=== PATIENT | female | born 1960 | race Caucasian/White ===

== ENCOUNTER → 2017-04-30 | Outpatient (REF) | payer OTHER ==
[~2017-04-30] MED LIST: ACET500C; EFFE150C; HYDROCODONE PO; IBUP400T OR; SIMV10TA2 OR
== END ==
LOC: M SFHCWAGY 10:43
PROVIDERS: ATTEND Nurse Practitioner Women's Health
DX: Z12.4 Encounter for screening for malignant neoplasm of cervix (principal)

== ENCOUNTER → 2017-04-30 | Outpatient (CLI) | payer OTHER ==
--- NOTE | 2017-04-30 12:47 | REPMRS ---
Patient History The patient states she had a clinical breast exam in 05/04 Patient is postmenopausal. Family history of prostate cancer in father at age 50 or over. Taking unspecified hormones for 5 years. Digital Woman Screen Mammo: April 30, 2017 - Exam #: [id number] Bilateral CC and MLO view(s) were taken. Technologist: Mihaela Lechuga, Technologist Prior study comparison: April 29, 2016, digital woman screen mammo performed at [facility]. April 28, 2015, digital woman screen mammo performed at [facility]. FINDINGS: The breast tissue is heterogeneously dense. This may lower the sensitivity of mammography. There has been no change in the appearance of the mammogram from the prior studies. There is a moderate amount of residual fibroglandular tissue which is fairly symmetric. There is no interval development of dominant mass, areas of architectural distortion, or clustered microcalcification typical of malignancy. ASSESSMENT: BI-RADS/ACR category 1 mammogram. Negative. Recommendation Routine screening mammogram in 1 year (for women over age 40). This mammogram was interpreted with the aid of an FDA-approved computer-aided dectection system. Electronically Signed By: Major Castillo MD 04/30/17 [id number]
== END ==
LOC: M WHC 10:33
PROVIDERS: ATTEND Nurse Practitioner Women's Health
DX: Z12.31 Encounter for screening mammogram for malignant neoplasm of breast (principal); Z78.0 Asymptomatic menopausal state

== ENCOUNTER → 2018-06-09 | Outpatient (CLI) | payer OTHER ==
--- NOTE | 2018-06-09 16:35 | REPMRS ---
Patient History The patient states she had a clinical breast exam in 05/2018. Patient is postmenopausal. Family history of prostate cancer at age 50 or over in father. Taking unspecified hormones for 6 years. Digital Woman Screen Mammo: June 09, 2018 - Exam #: [id number] Bilateral CC and MLO view(s) were taken. Technologist: Daniella Valadez, Technologist Prior study comparison: April 30, 2017, digital woman screen mammo performed at [facility]. April 29, 2016, digital woman screen mammo performed at [facility]. April 28, 2015, digital woman screen mammo performed at [facility]. FINDINGS: The breast tissue is heterogeneously dense. This may lower the sensitivity of mammography. There is a moderate amount of heterogeneously dense fibroglandular tissue which is fairly symmetric. There is no interval development of dominant mass, architectural distortion, or clustered microcalcification typical of malignancy. There has been no change in the appearance of the mammogram from the prior studies. 3-D tomosynthesis shows no additional findings. Assessment: BI-RADS/ACR category 1 mammogram. Negative Mammogram. Recommendation Routine screening mammogram of both breasts in 1 year (for women over age 40). This patient's Lifetime Breast Cancer RIsk is estimated at 7.1 %. This mammogram was interpreted with the aid of an FDA-approved computer-aided dectection system. Electronically Signed By: Ryan Matta MD 06/09/18 [id number]
== END ==
LOC: M WHC 13:16
PROVIDERS: ATTEND Nurse Practitioner Women's Health
DX: Z12.31 Encounter for screening mammogram for malignant neoplasm of breast (principal); Z78.0 Asymptomatic menopausal state; Z80.42 Family history of malignant neoplasm of prostate; Z92.29 Personal history of other drug therapy

== ENCOUNTER → 2020-06-29 | Outpatient (REF) | payer OTHER | LOC: M SFHCWAGY 16:59 | PROVIDERS: ATTEND Nurse Practitioner Women's Health | DX: Z12.4 Encounter for screening for malignant neoplasm of cervix (principal) | CPT/HCPCS: 87624; G0123 ==

== ENCOUNTER → 2020-06-29 | Outpatient (CLI) | payer OTHER ==
--- NOTE | 2020-06-29 16:20 | REPMRS ---
Patient History The patient states she had a clinical breast exam in June 2020. Family history of prostate cancer at age 50 or over in father. Taking unspecified hormones for 6 years. Digital Woman Screen Mammo: June 29, 2020 - Exam #: [id number] Bilateral CC and MLO view(s) were taken. Technologist: Martha Shaw, Technologist Prior study comparison: June 09, 2018, bilateral digital woman screen mammo performed at [facility]. April 30, 2017, digital woman screen mammo performed at [facility]. April 29, 2016, digital woman screen mammo performed at [facility]. FINDINGS: The breast tissue is heterogeneously dense. This may lower the sensitivity of mammography. The Volpara volumetric breast density category is: C. There is a moderate amount of heterogeneously dense fibroglandular tissue which is fairly symmetric. There is no interval development of dominant mass, architectural distortion, or grouped microcalcification typical of malignancy. There has been no change in the appearance of the mammogram from the prior studies. 3-D tomosynthesis shows no additional findings. Assessment: BI-RADS/ACR category 1 mammogram. Negative Mammogram. Recommendation Routine screening mammogram of both breasts in 1 year (for women over age 40). This patient's [facility] Lifetime Breast Cancer RIsk is estimated at 6.7 %. This mammogram was interpreted with the aid of an FDA-approved computer-aided dectection system. Electronically Signed By: Ryan Matta MD 06/29/20 [id number]
== END ==
LOC: M WHC 14:53
PROVIDERS: ATTEND Nurse Practitioner Women's Health
DX: Z12.31 Encounter for screening mammogram for malignant neoplasm of breast (principal)

== ENCOUNTER → 2020-08-04 | Outpatient (CLI) | payer OTHER ==
--- NOTE | 2020-08-04 11:14 | REP ---
INDICATION: NICOTINE DEPENDENCE. COMPARISON: None. TECHNIQUE: The study is performed without IV contrast. The images are presented at lung windowing only. FINDINGS: There is a 5 mm lung nodule posteriorly in the superior segment of the right lower lobe on image 58. There is a 4 mm pleural-based lung nodule posterolaterally in the superior segment of the right lower lobe on image 63. There is a 19 mm ground-glass density in the lingular segment of the left upper lobe on image 67. There are no other nodules or masses. There are no infiltrates or effusions. IMPRESSION: The 2 lung nodules and the ground-glass density are all category 2 lung lesions with the probability of malignancy less than 1%. Category [address] low-dose lung screening CT of the chest. Depending on risk factors consider annual follow-up low-dose lung screening chest CT. <Electronically signed by Major Wood > 08/04/20 [id number]
== END ==
LOC: M RAD 09:58
PROVIDERS: ATTEND Nurse Practitioner Family
DX: F17.200 Nicotine dependence, unspecified, uncomplicated (principal)

== ENCOUNTER → 2022-02-08 | Outpatient (REF) | payer OTHER | LOC: M PLALAB 13:46 | PROVIDERS: ATTEND Nurse Practitioner Family | DX: Z12.4 Encounter for screening for malignant neoplasm of cervix (principal) | CPT/HCPCS: 87624; G0123 ==

== ENCOUNTER → 2022-02-08 | Outpatient (CLI) | payer OTHER | LOC: M WHC 10:26 | PROVIDERS: ATTEND Nurse Practitioner Family | DX: Z12.31 Encounter for screening mammogram for malignant neoplasm of breast (principal) ==

== ENCOUNTER → 2022-10-30 | Outpatient (CLI) | payer OTHER | LOC: M RAD 10:35 | PROVIDERS: ATTEND Nurse Practitioner Family | DX: Z87.891 Personal history of nicotine dependence (principal) ==

== ENCOUNTER 2024-06-23 10:46 | Day surgery (SDC) | payer OTHER ==
[~2024-06-23] VITALS: Ht 154.9 cm; Wt 64.2 kg
[~2024-06-23 10:46] MED LIST changes: +ACET-1349 PO; +ALBU8.5H INH; +DULO1CAP5 PO; +HYDR-3713 PO
[2024-06-23] MEDS ORDERED: propofoL 200 MG/20 ML VIAL As Ordered ONE (12:29)
[2024-06-23] MEDS ORDERED: LIDOCAINE 2% 100MG/5ML SDV (FOR ANES.) As Ordered ONE (12:29)
[2024-06-23 12:58] VITALS: TEMP 97.4
[2024-06-23 13:12] VITALS: BP 156/79; O2SAT 98
== END 2024-06-23 13:14 | disposition home or self-care (01) ==
LOC: M OPP 10:46
PROVIDERS: ATTEND Surgery
DX: Z12.11 Encounter for screening for malignant neoplasm of colon (principal); D12.6 Benign neoplasm of colon, unspecified; K57.30 Diverticulosis of large intestine without perforation or abscess without bleeding; I10 Essential (primary) hypertension; M19.90 Unspecified osteoarthritis, unspecified site; F17.210 Nicotine dependence, cigarettes, uncomplicated; Z79.899 Other long term (current) drug therapy

== ENCOUNTER → 2025-02-18 | Outpatient (CLI) | payer MEDICARE, BC | LOC: M RAD 10:08 | PROVIDERS: ATTEND Nurse Practitioner Family | DX: Z87.891 Personal history of nicotine dependence (principal) ==